=== PATIENT | male | born 1980 | race Caucasian/White ===

== ENCOUNTER 2017-05-07 09:01 | Emergency (ER) | payer SELFPAY ==
[2017-05-07] MEDS ORDERED: XYLOCAINE 1% 20 mL INFILTRATI ONE (11:50)
[2017-05-07] MEDS ORDERED: CLEOCIN 900 MG/50 mL 900 MG/50 ML BAG IV ONE (11:55)
--- NOTE | 2017-05-07 11:56 | Emergency Department Report ---
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 MD complaint: abscess/boil Onset/Timin -: week(s) Tetanus Up to Date: yes Location: [facility] Severity: moderate Severity scale (0 -10): 4 Quality: other (itching ) Consistency: constant Worsens with: none Context: none Associated symptoms: itching Treatments Prior to Arrival: none - Related Data Home Medications Medication Instructions Recorded Confirmed Last Taken Buprenorphine HCl/Naloxone HCl 2 film SL QDAY 11/20/13 11/20/13 11/16/13 [Suboxone 8 mg-2 mg SL Film] Insulin NPH/Regular [Novolin 70/30] 20 units SUB-Q HS 11/20/13 11/20/13 21:00 Insulin NPH/Regular [Novolin 70/30] 30 unit SQ QAMDIAB 11/20/13 11/20/13 08:00 Previous Rx's Medication Instructions Recorded Last Taken Type Ondansetron [Zofran Odt] 8 mg PO TID PRN #7 tab.rapdis 11/21/13 Unknown Rx oxyCODONE /ACETAMINOPHEN [Percocet 1 tab PO Q6HR PRN #12 tablet 11/21/13 Unknown Rx 5/325 mg] Ibuprofen 800 mg PO TID PRN #30 tablet 05/07/17 Unknown Rx Sulfamethoxazole/Trimethoprim 1 each PO BID #28 tablet 05/07/17 Unknown Rx [Bactrim DS TAB] Allergies Allergy/AdvReac Type Severity Reaction Status Date / Time No Known Allergies Allergy Verified 11/21/13 01:59 Abscess Boil HPI - HPI Chief Complaint: Skin/Abscess/Foreign Body Stated Complaint: HAND PAIN Time Seen by Provider: 05/07/17 11:42 Home Medications: Home Medications Medication Instructions Recorded Confirmed Last Taken Buprenorphine HCl/Naloxone HCl 2 film SL QDAY 11/20/13 11/20/13 11/16/13 [Suboxone 8 mg-2 mg SL Film] Insulin NPH/Regular [Novolin 70/30] 20 units SUB-Q HS 11/20/13 11/20/13 21:00 Insulin NPH/Regular [Novolin 70/30] 30 unit SQ QAMDIAB 11/20/13 11/20/13 08:00 Previous Rx's Medication Instructions Recorded Last Taken Type Ondansetron [Zofran Odt] 8 mg PO TID PRN #7 tab.rapdis 11/21/13 Unknown Rx oxyCODONE /ACETAMINOPHEN [Percocet 1 tab PO Q6HR PRN #12 tablet 11/21/13 Unknown Rx 5/325 mg] Ibuprofen 800 mg PO TID PRN #30 tablet 05/07/17 Unknown Rx Sulfamethoxazole/Trimethoprim 1 each PO BID #28 tablet 05/07/17 Unknown Rx [Bactrim DS TAB] Allergies/Adverse Reactions: Allergies Allergy/AdvReac Type Severity Reaction Status Date / Time No Known Allergies Allergy Verified 11/21/13 01:59 ED Review of Systems ROS: Stated complaint: HAND PAIN Other details as noted in HPI ED Past Medical Hx - Past Medical History Previous Medical History?: Yes Hx Diabetes: Yes Additional medical history: substance abuse - Surgical History Past Surgical History?: Yes Additional Surgical History: neck - Social History Smoking Status: Current Every Day Smoker Substance Use Type: None - Medications Home Medications: Home Medications Medication Instructions Recorded Confirmed Last Taken Type Buprenorphine HCl/Naloxone HCl 2 film SL QDAY 11/20/13 11/20/13 11/16/13 History [Suboxone 8 mg-2 mg SL Film] Insulin NPH/Regular [Novolin 70/30] 20 units SUB-Q HS 11/20/13 11/20/13 21:00 History Insulin NPH/Regular [Novolin 70/30] 30 unit SQ QAMDIAB 11/20/13 11/20/13 08:00 History Ondansetron [Zofran Odt] 8 mg PO TID PRN #7 tab.rapdis 11/21/13 Unknown Rx oxyCODONE /ACETAMINOPHEN [Percocet 1 tab PO Q6HR PRN #12 tablet 11/21/13 Unknown Rx 5/325 mg] Ibuprofen 800 mg PO TID PRN #30 tablet 05/07/17 Unknown Rx Sulfamethoxazole/Trimethoprim 1 each PO BID #28 tablet 05/07/17 Unknown Rx [Bactrim DS TAB] ED Physical Exam - General Limitations: No Limitations ED Course Vital Signs 05/07/17 09:13 Temperature 98.4 F Pulse Rate 93 H Respiratory 16 Rate Blood Pressure 140/89 O2 Sat by Pulse 98 Oximetry ED Medical Decision Making - Lab Data Result diagrams: 05/07/17 11:55 05/07/17 11:55 Laboratory Tests 05/07/17 05/07/17 05/07/17 11:55 11:55 11:55 WBC 16.5 H RBC 4.67 Hgb 14.9 Hct 44.1 MCV 95 H MCH 32 MCHC 34 RDW 14.2 Plt Count 414 Lymph % (Auto) 18.1 [place] % (Auto) 7.3 Eos % (Auto) 0.5 Baso % (Auto) 0.6 Lymph # 3.0 [place] # 1.2 H Eos # 0.1 Baso # 0.1 Seg Neutrophils % 73.5 H Seg Neutrophils # 12.2 H Sodium 131 L Potassium 4.6 Chloride 94.9 L Carbon Dioxide 22 Anion Gap 19 BUN 13 Creatinine 0.8 Estimated GFR > 60 BUN/Creatinine Ratio 16 Glucose 437 H Ketones Quantitative Negative Calcium 9.4 Total Bilirubin 0.20 AST 16 ALT 16 Alkaline Phosphatase 126 Total Protein 8.0 Albumin 3.5 L Albumin/Globulin Ratio 0.8 - Medical Decision Making 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 exam: patient appears ill noted erythema multiple abscess bilat UE, pain swelling, labs: WBC: 16.5, NA: 131, cl: 94, gap: 19, glucose: 437, ketones negative , blood cultures pending plan: NS 1000 bolus, then 150 cc/ hr, clindamycin 900mg ivpb, consulted ed attending recommendation admit to Medicine Dx: Cellulitis, Hyperglycemia, Consulted Hospitalist Dr. Ch, . advises will see patient at bedside, pt for admission to hospitalist Dr. Ch , Dx: Cellulitis, Abscess, Hypergycemia discussed same with patient and family pt verbalized agreement and understanding with treatment plan. 1450: Dr. Ch for evaluation recommendation no I&D, DC to home with rx: Bactrim DS, follow up with General Surgery Dr. Escobar, discussed same with patient, patient verbalized agreement and understanding with same for dc to home in stable condition at this time. Critical care attestation.: If time is entered above; I have spent that time in minutes in the direct care of this critically ill patient, excluding procedure time. ED Disposition Clinical Impression: Cellulitis and abscess of hand, Cellulitis and abscess of upper arm and forearm , Hyperglycemia Disposition: DC-01 TO HOME OR SELFCARE Is pt being admited?: No Does the pt Need Aspirin: No Condition: Good Instructions: Cellulitis (ED) Prescriptions: Ibuprofen 800 mg PO TID PRN #30 tablet PRN Reason: Pain Sulfamethoxazole/Trimethoprim [Bactrim DS TAB] 1 each PO BID #28 tablet Referrals: PRIMARY CAREMD [Primary Care Provider] - 3-5 Days QASIM ESCOBAR MD [Staff Physician] - 3-5 Days Forms: Work/School Release Form(ED) Time of Disposition: 13:55
[2017-05-07] MEDS ORDERED: XYLOCAINE 2% INFILTRATI ONE (12:01)
[2017-05-07 12:19] LABS: Basophils # (Auto) 0.1 K/mm3 (0.0-0.1); Basophils % (Auto) 0.6 % (0.0-1.8); Eosinophils # (Auto) 0.1 K/mm3 (0.0-0.4); Eosinophils % (Auto) 0.5 % (0.0-4.3); Hematocrit 44.1 % (35.5-45.6); Hemoglobin 14.9 gm/dl (11.8-15.2); Lymphocytes % (Auto) 18.1 % (13.4-35.0); Mean Corpuscular HGB Conc 34 % (32-34); Mean Corpuscular Hemoglobin 32 pg (28-32); Mean Corpuscular Volume 95 fl (84-94); Monocytes # (Auto) 1.2 K/mm3 (0.0-0.8); Monocytes % (Auto) 7.3 % (0.0-7.3); Platelet Count 414 K/mm3 (140-440); Red Blood Count 4.67 M/mm3 (3.65-5.03); Red Cell Distribution Width 14.2 % (13.2-15.2)
[2017-05-07 12:32] LABS: Alanine Aminotransferase 16 units/L (7-56); Albumin 3.5 g/dL (3.9-5); BUN/Creatinine Ratio 16; Blood Urea Nitrogen 13 mg/dL (9-20); Calcium 9.4 mg/dL (8.4-10.2); Hemolysis Index 7
[2017-05-07] MEDS ORDERED: NACL 0.9% 1000 ML 1,000 ML IV ONE (13:09)
[2017-05-07 15:41] VITALS: BP 126/79
== END 2017-05-07 16:39 | disposition home or self-care (01) ==
LOC: ED 09:01
DX: L03.114 Cellulitis of left upper limb (principal); L03.113 Cellulitis of right upper limb; E11.65 Type 2 diabetes mellitus with hyperglycemia; Z79.4 Long term (current) use of insulin; F17.200 Nicotine dependence, unspecified, uncomplicated
CPT/HCPCS: 36415; 80053; 82010; 82962; 85025; 87040; 96361; 96374; 99283; J7030

== ENCOUNTER 2017-05-12 02:36 | Emergency (ER) | payer SELFPAY ==
[2017-05-12 03:41] LABS: Basophils # (Auto) 0.1 K/mm3 (0.0-0.1); Basophils % (Auto) 0.5 % (0.0-1.8); Eosinophils # (Auto) 0.2 K/mm3 (0.0-0.4); Hemoglobin 15.1 gm/dl (11.8-15.2); Lymphocytes # (Auto) 3.1 K/mm3 (1.2-5.4); Lymphocytes % (Auto) 18.7 % (13.4-35.0); Mean Corpuscular HGB Conc 34 % (32-34); Mean Corpuscular Hemoglobin 32 pg (28-32); Mean Corpuscular Volume 93 fl (84-94); Monocytes # (Auto) 1.2 K/mm3 (0.0-0.8); Monocytes % (Auto) 7.2 % (0.0-7.3); Platelet Count 489 K/mm3 (140-440); Red Blood Count 4.71 M/mm3 (3.65-5.03); Red Cell Distribution Width 13.9 % (13.2-15.2)
[2017-05-12 03:49] LABS: BUN/Creatinine Ratio 38; Blood Urea Nitrogen 23 mg/dL (9-20); Calcium 9.7 mg/dL (8.4-10.2); Hemolysis Index 7
[2017-05-12] MEDS ORDERED: NACL 0.9% IR ONE (04:12)
[2017-05-12] MEDS ORDERED: MARCAINE 0.25% INFILTRATI ONE ×3 (04:21→06:00)
[2017-05-12] MEDS ORDERED: XYLOCAINE 1% 20 mL ONE (04:22)
--- NOTE | 2017-05-12 04:25 | Emergency Department Report ---
HPI - General Chief Complaint: Wound/Laceration Time Seen by Provider: 05/12/17 03:44 - HPI HPI: Room 3 The patient is a 36-year-old male presenting with a chief complaint of bilateral upper extremity abscesses. The patient states the past 3 weeks he said lesions on both forearms consistent with abscesses. Patient states she was started on Bactrim and ibuprofen for the lesions have enlarged and somewhat began to drain. The patient does admit to a subjective fever. The patient has a history of IV drug abuse was states he has not used needles in the last 5 months Location: Bilateral upper extremities Duration: 3 weeks Quality: Pain Severity: Moderate Modifying factors: [see above] Context: [see above] Mode of transportation: [not driving] ED Past Medical Hx - Past Medical History Hx Diabetes: Yes Additional medical history: substance abuse - Surgical History Additional Surgical History: neck - Family History Family history: no significant - Social History Smoking Status: Current Every Day Smoker Substance Use Type: None, Heroin (history of IVDA. heart months per patient) - Medications Home Medications: Home Medications Medication Instructions Recorded Confirmed Last Taken Type Buprenorphine HCl/Naloxone HCl 2 film SL QDAY 11/20/13 11/20/13 11/16/13 History [Suboxone 8 mg-2 mg SL Film] Insulin NPH/Regular [Novolin 70/30] 20 units SUB-Q HS 11/20/13 11/20/13 21:00 History Insulin NPH/Regular [Novolin 70/30] 30 unit SQ QAMDIAB 11/20/13 11/20/13 08:00 History Ondansetron [Zofran Odt] 8 mg PO TID PRN #7 tab.rapdis 11/21/13 Unknown Rx oxyCODONE /ACETAMINOPHEN [Percocet 1 tab PO Q6HR PRN #12 tablet 11/21/13 Unknown Rx 5/325 mg] Ibuprofen 800 mg PO TID PRN #30 tablet 05/07/17 Unknown Rx Sulfamethoxazole/Trimethoprim 1 each PO BID #28 tablet 05/07/17 Unknown Rx [Bactrim DS TAB] Ciprofloxacin HCl [Ciprofloxacin 500 mg PO BID #20 tablet 05/12/17 Unknown Rx TAB] ED Review of Systems ROS: Stated complaint: Boils on both hands Other details as noted in HPI Physical Exam - Physical Exam Vital Signs: Vital Signs 05/12/17 02:44 Temperature 97.9 F Pulse Rate 87 Respiratory 20 Rate Blood Pressure 153/93 O2 Sat by Pulse 99 Oximetry Physical Exam: GENERAL: The patient is well-developed well-nourished male sitting on stretcher not appearing to be in acute distress. [] HEENT: Normocephalic. Atraumatic. Extraocular motions are intact. Patient has moist mucous membranes. NECK: Supple. Trachea midline CHEST/LUNGS: There is no respiratory distress noted. HEART/CARDIOVASCULAR: Regular. There is no tachycardia. There is no gallop rub or murmur. ABDOMEN: There is no abdominal distention. SKIN: There is a large dermal abscess to the posterior aspect of the right forearm measuring approximately 3 cm in diameter with fluctuance. There is a 2 cm diameter region of fluctuance to the radial aspect of the right wrist. There is a 2 cm diameter region of fluctuance to the anterior right wrist. There is a 2 cm region of fluctuance to the left antecubital region approximately 1 cm in height NEURO: The patient is awake, alert, and oriented. The patient is cooperative. The patient has normal speech MUSCULOSKELETAL:There is no evidence of acute injury. ED Course Vital Signs 05/12/17 02:44 Temperature 97.9 F Pulse Rate 87 Respiratory 20 Rate Blood Pressure 153/93 O2 Sat by Pulse 99 Oximetry - I & D Right Arm Type of Procedure: Simple Site: right forearm, left forearm Blade Size: 11 I & D Procedure: betadine prep Progress: abscess #1 posterior aspect of right forearm, abscess #2 radial aspect of right wrist, abscess #3 anterior aspect of right wrist, abscess number for left antecubital fossa. Incisions were made over all 4 abscesses after in the station and sterile prep. Approximately 3 mL's of purulent discharge was expressed from the abscess #1. All abscesses were irrigated with normal saline and then packed with quarter inch iodoform gauze. Patient tolerated well. Lidocaine 1% mixed with bupivacaine 0.25% was used for anesthesia with a total of approximately 12 mL ED Medical Decision Making - Lab Data Result diagrams: 05/12/17 03:06 05/12/17 03:06 Laboratory Tests 05/12/17 05/12/17 05/12/17 03:01 03:06 03:06 WBC 16.7 H RBC 4.71 Hgb 15.1 Hct 44.0 MCV 93 MCH 32 MCHC 34 RDW 13.9 Plt Count 489 H Lymph % (Auto) 18.7 [place] % (Auto) 7.2 Eos % (Auto) 1.0 Baso % (Auto) 0.5 Lymph # 3.1 [place] # 1.2 H Eos # 0.2 Baso # 0.1 Seg Neutrophils % 72.6 H Seg Neutrophils # 12.2 H Sodium 134 L Potassium 4.7 Chloride 94.0 L Carbon Dioxide 25 Anion Gap 20 BUN 23 H Creatinine 0.6 L Estimated GFR > 60 BUN/Creatinine Ratio 38 Glucose 221 H POC Glucose 232 H Calcium 9.7 - Differential Diagnosis intradermal abscess Critical care attestation.: If time is entered above; I have spent that time in minutes in the direct care of this critically ill patient, excluding procedure time. ED Disposition Clinical Impression: Abscess of right forearm, Abscess of left forearm Disposition: TO HOME OR SELFCARE Is pt being admited?: No Does the pt Need Aspirin: No Condition: Stable Instructions: Abscess (ED), Abscess Incision and Drainage (ED) Additional Instructions: You should return to the emergency department or your primary physician in 48 hours to have your packing removed and for reevaluation. Return to the emergency department immediately should you develop worsening symptoms, fever, inability to tolerate food or liquid or any other concerns. Prescriptions: Ciprofloxacin HCl [Ciprofloxacin TAB] 500 mg PO BID #20 tablet Referrals: CARIDAD ALCANTAR MD [Primary Care Provider] - 3-5 Days MELANIE KC MD [Staff Physician] - 2-3 Days (Dr. Kc is an orthopedic surgeon. Please follow up with him for further evaluation) Time of Disposition: 05:40
[2017-05-12] MEDS ORDERED: LEVAQUIN PO ONE (05:31)
[2017-05-12] MEDS ORDERED: ROCEPHIN IM ONE (05:31)
[2017-05-12] MEDS ORDERED: XYLOCAINE 1% MPF 5 mL INFILTRATI ONE (05:31)
[2017-05-12 06:03] VITALS: BP 142/89
== END 2017-05-12 06:07 | disposition home or self-care (01) ==
LOC: ED 02:36
DX: L02.414 Cutaneous abscess of left upper limb (principal); L02.413 Cutaneous abscess of right upper limb; E11.9 Type 2 diabetes mellitus without complications; F17.200 Nicotine dependence, unspecified, uncomplicated; F11.10 Opioid abuse, uncomplicated
CPT/HCPCS: 10061; 36415; 80048; 82962; 85025; 87116; 96372; 99283; J0696